=== PATIENT | female | born 1950 | race African-American/Black ===

== ENCOUNTER 2016-07-30 14:02 | Emergency (ER) | payer MEDICARE, BC ==
[~2016-07-30] VITALS: Ht 175.3 cm; Wt 74.0 kg
[2016-07-30 14:03] VITALS: BP 136/66; PULSE 68; RESP 24; TEMP 98.3; O2SAT 98
--- NOTE | 2016-07-30 14:13 | PD ---
Physical Exam Date Seen by Provider: Jul 30, 2016 Time Seen by Provider: 14:07 Data Data Last Documented VS Vital Signs Date Time Temp Pulse Resp B/P Pulse Ox O2 Delivery O2 Flow Rate FiO2 07/30/16 14:03 98.3 68 24 136/66 98 Room Air [facility] Supervised Visit with YASH: No Narrative Course 65 YO F with complaint of bilateral knee and shoulder pain and abdominal pain x "weeks." Vitals reviewed. Seen in triage, awaiting bed placement. Antonietta Palacios Jul 30, 2016 14:13
[2016-07-30] MEDS ORDERED: BUTR10DI T-DERMAL (15:10)
[2016-07-30] MEDS ORDERED: GLIP10TA6 PO (15:10)
[2016-07-30] MEDS ORDERED: AMLO5TAB2 PO (15:10)
[2016-07-30] MEDS ORDERED: TACR1 PO (15:10)
[2016-07-30] MEDS ORDERED: ASPI-110 PO (15:10)
[2016-07-30] MEDS ORDERED: MULT1TAB46 PO (15:10)
[2016-07-30] MEDS ORDERED: METF500T PO (15:10)
[2016-07-30] MEDS ORDERED: ADVA250A INH (15:10)
[2016-07-30] MEDS ORDERED: MYCO360 PO (15:10)
[2016-07-30] MEDS ORDERED: LOSA25TA PO (15:10)
[2016-07-30] MEDS ORDERED: LURA40 PO (15:10)
[2016-07-30] MEDS ORDERED: BENZ0.5T PO (15:10)
[2016-07-30] MEDS ORDERED: LIDO5DIS5 TOPICAL (15:10)
[2016-07-30] MEDS ORDERED: LORA1TAB12 PO (15:10)
[2016-07-30] MEDS ORDERED: PRED5TAB PO (15:10)
[2016-07-30] MEDS ORDERED: METO25TA3 PO (15:11)
--- NOTE | 2016-07-30 15:28 | PD ---
HPI . Chronic pain Chief Complaint: Pain: Acute or Chronic Time Seen by Provider: 14:19 Travel History International Travel<30 days: No Contact w/Intl Traveler<30days: No Traveled to known affect area: No History of Present Illness HPI History is obtained from the patient, her and records from previous emergency department visits. The patient's reports that this is her 15th ED visit since the first of the year for various complaints. Her complaints today include vertigo, bilateral shoulder pain, bilateral knee pain, abdominal pain and shortness of breath. All of these complaints have been thoroughly evaluated at other emergency departments and by various specialists. No etiology for the complaints has been found. The patient is under the care of a pain management and uses Butrans patches. The patient reports that this does not adequately control her pain. Her pain today is rated as 6/10. There are no exacerbating factors. No relieving factors. The pain is constant. The etiology of pain is undetermined. The patient's reports that she has been evaluated by a funeral home makeup artist regarding her dyspnea. She has had normal pulmonary function studies and a normal CT for PE. She is on bronchodilators and steroids but this does not help her dyspnea. The patient has had a recent EGD, CT of her abdomen and pelvis and abdominal ultrasound. She does have some findings but none are new. The further states that none of the findings are changed. The patient was most recently seen at [facility] last night. She states that they gave her a morphine shot. She is requesting something for pain here now. The reports that he brought her here because we had psychiatry here. However, when a psych screening exam was offered, the declined stating that the patient already has a psychiatrist and that they are only here temporarily. The patient also declines psych screening. It is really very unclear to me as to exactly what prompted them to come to our emergency Department today. He states that he had her sign a "contract" today stating that she would not seek any further care in the emergency department. However, they subsequently presented to us. [facility] Past Medical History Cardiovascular Problems: Yes (MURMUR) Diabetes: Yes Social History Tobacco Use: No Allergies-Medications (Allergen,Severity, Reaction): Coded Allergies: Penicillin (Verified Allergy, Severe, 07/30/16) Reported Meds & Prescriptions Reported Meds & Active Scripts Active Reported Metoprolol Tartrate 25 Mg Tab 25 Mg PO BID Prograf (Tacrolimus) 1 Mg Cap 6 Mg PO BID Myfortic (Mycophenolate Sodium) 360 Mg Tab 360 Mg PO BID Prednisone 5 Mg Tab 5 Mg PO DAILY Multi Vitamin Daily (Multiple Vitamin) 1 Tab Tab 1 Tab PO DAILY Benztropine (Benztropine Mesylate) 0.5 Mg Tab 0.5 Mg PO BID Lorazepam 1 Mg Tab 1 Mg PO BID PRN Latuda (Lurasidone) 40 Mg Tab 40 Mg PO HS Losartan (Losartan Potassium) 25 Mg Tab 25 Mg PO HS Amlodipine (Amlodipine Besylate) 5 Mg Tab 5 Mg PO DAILY Advair Diskus Inh (Fluticasone-Salmeterol Inh) 250-50 Mcg/Blist Aer 1 Puff INH DAILY Rinse mouth after use. Glipizide 10 Mg Tab 10 Mg PO DAILY Take 30 minutes before a meal Metformin (Metformin HCl) 500 Mg Tab 500 Mg PO TIDPC With meals Lidoderm (Lidocaine) 5 % Adh..patch 1 Patch TOPICAL DAILY PRN Aspirin 81 (Aspirin) 81 Mg Tabdr 81 Mg PO HS Butrans Patch 168 HR (Buprenorphine Patch 168 HR) 10 Mcg/Hr Patch 1 Patch T- DERMAL Q7D Review of Systems Except as stated in HPI: all other systems reviewed are Neg HENT: Positive: Vertigo Respiratory: Positive: Shortness of Breath Gastrointestinal: Positive: Abdominal Pain, Constipation, Loss of Appetite, No : Nausea, Vomiting, Diarrhea Musculoskeletal: Positive: Arthralgias Psychiatric: Positive: Anxiety, No: Suicidal Ideations Physical Exam Narrative Vital Signs Date Time Temp Pulse Resp B/P Pulse Ox O2 Delivery O2 Flow Rate FiO2 07/30/16 14:26 16 07/30/16 14:03 98.3 68 24 136/66 98 Room Air GENERAL: The patient is awake and alert and in no acute distress. She appears angry. SKIN: Warm and dry. HEAD: Atraumatic. Normocephalic. EYES: Pupils equal and round. Extraocular movements are intact. ENT: No nasal bleeding or discharge. Mucous membranes pink and moist. NECK: Trachea midline. Neck is supple. CARDIOVASCULAR: Regular rate and rhythm. Heart sounds are normal. RESPIRATORY: No accessory muscle use. Lungs are clear with full air movement throughout. GASTROINTESTINAL: Abdomen soft. Diffuse tenderness. Normal bowel sounds. Nondistended. MUSCULOSKELETAL: No obvious deformities. No joint swelling. No joint redness. Full range of motion of all joints without any apparent pain. NEUROLOGICAL: Awake and alert. No obvious cranial nerve deficits. Motor grossly within normal limits. Normal speech. PSYCHIATRIC: Anxious and angry appearing. Poor judgment in that she keeps presenting to the emergency department for chronic complaints. Data Data Last Documented VS Vital Signs Date Time Temp Pulse Resp B/P Pulse Ox O2 Delivery O2 Flow Rate FiO2 07/30/16 14:26 16 07/30/16 14:03 98.3 68 136/66 98 Room Air MDM Medical Decision Making Medical Screen Exam Complete: Yes Emergency Medical Condition: Yes Medical Record Reviewed: Yes (the patient presents with a stack of records from various hospitals and specialist. I have reviewed these) Differential Diagnosis My differential diagnosis of chronic pain includes but is not limited to arthritis, lumbar stenosis, degenerative disc disease, connective tissue disorder, malingering, drug-seeking. Narrative Course Patient presents with multiple complaints. Her physical exam is benign. I have explained to the patient and to her that the emergency department is probably not the most appropriate place evaluated for all of these chronic problems. The patient's seems to be in agreement but then he brought her here. The history, exam, diagnostic testing, and current condition do not suggest any significant pathology to warrant further testing, continued ED treatment, admission, or surgical evaluation at this point. The patient's condition is stable and appropriate for discharge. Diagnosis Primary Impression: Chronic pain Qualified Code: G89.4 - Chronic pain syndrome Additional Impression: Dyspnea Qualified Code: R06.00 - Dyspnea, unspecified type Patient Instructions: Chronic Abdominal Pain (ED), Chronic Pain (DC), General Instructions Disposition: 01 DISCHARGE HOME Condition: Stable Candace Morrison MD Jul 30, 2016 15:28
== END 2016-07-30 16:24 | disposition home or self-care (01) ==
LOC: NEPD 14:02
DX: G89.4 Chronic pain syndrome (principal); R06.00 Dyspnea, unspecified; R42 Dizziness and giddiness; R06.02 Shortness of breath; R10.9 Unspecified abdominal pain; K59.00 Constipation, unspecified; F41.9 Anxiety disorder, unspecified; M25.50 Pain in unspecified joint; E11.9 Type 2 diabetes mellitus without complications
CPT/HCPCS: 99282